=== PATIENT | female | born 1970 | race African-American/Black ===

== ENCOUNTER 2020-10-21 19:34 | Emergency (ER) | payer OTHER ==
[2020-10-21 19:41] VITALS: TEMP 97; BMI 26.3
[2020-10-21] MEDS ORDERED: TRANEXAMIC ACID 1000 MG/10 ML VIAL IVPUSH ONE (20:34)
[2020-10-21] MEDS ORDERED: TRANEXAMIC ACID 1000 MG/10 ML VIAL ONE ×2 (20:38→21:00)
[2020-10-21] MEDS ORDERED: ONDANSETRON 4 MG TABLET PO ONE (20:41)
[2020-10-21] MEDS ORDERED: ONDANSETRON 4 MG/2 ML VIAL ONE (21:00)
[2020-10-21] MEDS ORDERED: LIDOCAINE 1%/EPI 1:100000 (50 ML MULTI DOSE VIAL) ONE (21:11)
[2020-10-21] MEDS ORDERED: SODIUM CHLORIDE 0.9% 500 ML INFUS.BAG IV ONE (22:25)
[2020-10-21 22:49] LABS: BASO % 0.2 % (0-2.0); HEMATOCRIT 33.6 % (32.4-45.2); HEMOGLOBIN 10.8 GM/dL (10.7-15.3); LYMPH % 14.2 % (8-40); MCHC 32.2 g/dl (32.0-36.0); MEAN CELL VOLUME 83.7 fl (80-96); MEAN PLT VOLUME 9.3 fl (7.5-11.1); MONO % 7.1 % (3.8-10.2); NEUT % 78.5 % (42.8-82.8); PLATELET COUNT 360 K/MM3 (134-434); RBC 4.02 M/mm3 (3.60-5.2); RDW 14.6 % (11.6-15.6); WHITE BLOOD COUNT 20.3 K/mm3 (4.0-10.0)
[2020-10-21 22:53] LABS: INR 0.94 (0.83-1.09); PROTHROMBIN TIME (PATIENT) 11.6 SEC (9.7-13.0)
[2020-10-21 22:55] LABS: ACTIVATED PTT 26.1 SECONDS (25.2-36.5)
[2020-10-21 23:02] LABS: POTASSIUM 4.5 mmol/L (3.5-5.1)
[2020-10-21 23:07] LABS: CALCIUM 8.8 mg/dL (8.5-10.1)
[2020-10-21 23:08] LABS: ALBUMIN 3.4 g/dl (3.4-5.0); BLOOD UREA NITROGEN 20.3 mg/dL (7-18)
[2020-10-21 23:11] LABS: CREATININE 0.8 mg/dL (0.55-1.3)
[2020-10-21 23:12] LABS: BILIRUBIN,TOTAL 0.2 mg/dL (0.2-1); TOT PROT 7.5 g/dl (6.4-8.2)
[2020-10-21 23:34] LABS: PLATELET ESTIMATE ADEQUATE
[2020-10-22 04:32] VITALS: BP 66/54; PULSE 77
== END 2020-10-22 00:15 | disposition short-term general hospital (02) ==
LOC: JER 19:34
PROC: 2Y41X5Z Packing of Nasal Region using Packing Material (ICD-10-PCS; principal; 2020-10-21)
DX: R04.0 Epistaxis (principal)
CPT/HCPCS: 36415; 80053; 85025; 85610; 85730; 86850; 86900; 86901; 99291